=== PATIENT | female | born 1985 | race Two or more races ===

== ENCOUNTER 2022-05-19 22:44 | Emergency (ER) | payer OTHER ==
[~2022-05-19] VITALS: Ht 170.2 cm; Wt 88.9 kg
[2022-05-19] MEDS ORDERED: SYNTHROID137 MCG (23:10)
== END 2022-05-20 10:30 | disposition home or self-care (01) ==
LOC: ER 22:44
DX: N39.0 Urinary tract infection, site not specified (principal); R10.2 Pelvic and perineal pain; R11.10 Vomiting, unspecified; N80.9 Endometriosis, unspecified